=== PATIENT | female | born 1990 | race Caucasian/White ===

== ENCOUNTER 2017-02-22 16:58 | Emergency (ER) | payer OTHER ==
[2017-02-22 17:02] VITALS: BP 125/71; PULSE 80; TEMP 98.6; BMI 30.2
--- NOTE | 2017-02-22 18:45 | PDOC ---
History of Present Illness - General History Source: Patient Exam Limitations: No Limitations - History of Present Illness Initial Comments: 02/22/17 18:56 The patient is a 27 year old female (), states 5 weeks but by date 9 weeks (last menstrual period was on 12/20/16), who presents to the ED with complaints of vaginal bleeding since earlier today. The patient report a water pink vaginal discharge half an hour ago that has now turned brownish-colored discharge. The patient reports slight superpubic cramping associated with present symptoms. Denies dysuria. Denies fevers or chills. Denies abdominal pain, nausea, vomiting , or diarrhea. Denies chest pain or shortness of breath. Denies any other symptoms. Surgical: x3 (all born at 39 weeks) <Eric Fregoso - Last Filed: 02/22/17 22:21> - General History Source: Patient Exam Limitations: No Limitations <Rodrick Chaves - Last Filed: 02/22/17 22:25> - General Chief Complaint: Vaginal Bleeding Stated Complaint: VAGINAL BLEEDING/5 WKS Time Seen by Provider: 02/22/17 18:18 Past History <Eric Fregoso - Last Filed: 02/22/17 22:21> - Past Medical History Other medical history: PATIENT DENIES MEDICAL HISTORY - Psycho/Social/Smoking Cessation Hx Suicidal Ideation: No Smoking History: Never smoked Hx Alcohol Use: No Drug/Substance Use Hx: No <Rodrick Chaves - Last Filed: 02/22/17 22:25> - Past Medical History Allergies/Adverse Reactions: Allergies Allergy/AdvReac Type Severity Reaction Status Date / Time No Known Allergies Allergy Verified 02/22/17 17:02 Home Medications: Ambulatory Orders NK [No Known Home Medication] 02/22/17 Review of Systems - Review of Systems Able to Perform ROS?: Yes Comments:: 02/22/17 19:07 GENERAL/CONSTITUTIONAL: No fever or chills. No weakness. HEAD, EYES, EARS, NOSE AND THROAT: No change in vision. No ear pain or discharge. No sore throat. CARDIOVASCULAR: No chest pain or shortness of breath. RESPIRATORY: No cough, wheezing, or hemoptysis. GASTROINTESTINAL: No nausea, vomiting, diarrhea or constipation. GENITOURINARY: No dysuria, frequency, or change in urination. MUSCULOSKELETAL: No joint or muscle swelling or pain. No neck or back pain. PELVIC: + vaginal bleeding, superpubic pain SKIN: No rash NEUROLOGIC: No headache, vertigo, loss of consciousness, or change in strength/ sensation. ENDOCRINE: No increased thirst. No abnormal weight change. HEMATOLOGIC/LYMPHATIC: No anemia, easy bleeding, or history of blood clots. ALLERGIC/IMMUNOLOGIC: No hives or skin allergy. All Other Systems: Reviewed and Negative <Eric Fregoso - Last Filed: 02/22/17 22:21> *Physical Exam - Vital Signs Last Vital Signs Temp Pulse Resp BP Pulse Ox 98.6 F 80 18 125/71 100 02/22/17 16:59 02/22/17 16:59 02/22/17 16:59 02/22/17 16:59 02/22/17 16:59 - Physical Exam Comments: 02/22/17 19:07 GENERAL: Awake, alert, and fully oriented, in no acute distress HEAD: No signs of trauma EYES: PERRLA, EOMI, sclera anicteric, conjunctiva clear ENT: Auricles normal inspection, hearing grossly normal, nares patent, oropharynx clear without exudates. Moist mucosa NECK: Normal ROM, supple, no lymphadenopathy, JVD, or masses LUNGS: Breath sounds equal, clear to auscultation bilaterally. No wheezes, and no crackles HEART: Regular rate and rhythm, normal S1 and S2, no murmurs, rubs or gallops ABDOMEN: Soft, nontender, normoactive bowel sounds. No guarding, no rebound. No masses PELVIC: + Os is closed No cmt, old blood EXTREMITIES: Normal range of motion, no edema. No clubbing or cyanosis. No cords, erythema, or tenderness NEUROLOGICAL: Normal speech SKIN: Warm, Dry, normal turgor, no rashes or lesions noted. <Eric Fregoso - Last Filed: 02/22/17 22:21> - Vital Signs Last Vital Signs Temp Pulse Resp BP Pulse Ox 98.6 F 80 18 125/71 100 02/22/17 16:59 02/22/17 16:59 02/22/17 16:59 02/22/17 16:59 02/22/17 16:59 <Rodrick Chaves - Last Filed: 02/22/17 22:25> ED Treatment Course - LABORATORY CBC & Chemistry Diagram: 02/22/17 19:00 - RADIOLOGY Radiograph Interpretation: 02/22/17 22:00 US/TRANSVAGINAL US Impression: Findings suspicious for a nonviable intrauterine gestation and impending . Reported by: Darren Epperson <Eric Fregoso - Last Filed: 02/22/17 22:21> - LABORATORY CBC & Chemistry Diagram: 02/22/17 19:00 - RADIOLOGY Radiology Studies Ordered: Category Date Time Status TRANSVAGINAL US PREG [US] Stat Ultrasound 02/22/17 18:25 Ordered <Rodrick Chaves - Last Filed: 02/22/17 22:25> Medical Decision Making - Medical Decision Making 02/22/17 18:40 A portion of this note was documented by scribe services under my direction. I have reviewed the details of the note, within reason, and agree with the documentation with the following case summary and management plan written by me. Patient treated in the ED. Nursing notes are reviewed and incorporated into the medical decision-making. Vital signs reviewed. Peripheral IV access obtained by the nurse, laboratory studies are drawn and sent, reviewed and interpreted by myself. Vital Signs Temp Pulse Resp BP Pulse Ox 98.6 F 80 18 125/71 100 02/22/17 16:59 02/22/17 16:59 02/22/17 16:59 02/22/17 16:59 02/22/17 16:59 Ronan lanier and with no past medical history, , ~9 wks by dates (early December) (though pt reports she is 5 weeks ) presents with vaginal bleeding. Patient had noted some lower abdominal cramping and vaginal spotting. She denies abdominal pain now. Came to the ED for evaluation. Cervical os is closed and the bleeding is no longer occurring. Differential includes ectopic versus threatened miscarriage. We'll obtain labs including beta hCG and a type and screen and a transvaginal ultrasound and reassess. 02/22/17 22:23 Ultrasound reviewed. It is suspicious for a nonviable intrauterine gestation impending . There was a gestational sac of 6 weeks and 6 days. CBC, BMP 02/22/17 19:00 CMP Beta HCG, Quant 66373.2 mIU/ml 02/22/17 19:00 Urine Test Results Urine Color Ltyellow 02/22/17 19:00 Urine Appearance Clear 02/22/17 19:00 Urine pH 6.0 (5.0-8.0) 02/22/17 19:00 Ur Specific Cylinder 1.020 (1.005-1.025) 02/22/17 19:00 Urine Protein Negative (NEGATIVE) 02/22/17 19:00 Urine Glucose (UA) Negative (NEGATIVE) 02/22/17 19:00 Urine Ketones Negative (NEGATIVE) 02/22/17 19:00 Urine Blood Negative (NEGATIVE) 02/22/17 19:00 Urine Nitrite Negative (NEGATIVE) 02/22/17 19:00 Urine Bilirubin Negative (NEGATIVE) 02/22/17 19:00 Ur Leukocyte Esterase Negative (NEGATIVE) 02/22/17 19:00 O positive. This is likely impending . Patient given the results. I assured the patient that she has uncontrollable bleeding that she needs to return the ER for potential D&C. Patient was understanding agrees with plan. I discussed the physical exam findings, ancillary test results and final diagnoses with the patient. I answered all of the patient's questions. The patient was satisfied with the care received and felt comfortable with the discharge plan and treatment plan. The patient will call their primary care physician within 24 hours to arrange follow-up and will return to the Emergency Department with any new, persistant or worsening symptoms. <Rodrick Chaves - Last Filed: 02/22/17 22:25> *DC/Admit/Observation/Transfer - Attestations Scribe Attestion: 02/22/17 19:07 Documentation prepared by Eric Fregoso, acting as medical laboratory technical officer for Rodrick Chaves MD <Eric Fregoso - Last Filed: 02/22/17 22:21> - Discharge Dispostion Admit: No <Rodrick Chaves - Last Filed: 02/22/17 22:25> Diagnosis at time of Disposition: Vaginal bleeding before 22 weeks gestation - Discharge Dispostion Disposition: HOME Condition at time of disposition: Stable - Referrals Referrals: Benjamin Murillo MD [Staff Physician] - Ashlee Saldaña MD [Staff Physician] - - Patient Instructions Printed Discharge Instructions: DI for Miscarriage, Dealing With Miscarriage Additional Instructions: Please make an appointment with an forestry aid technician doctor this week. Take 650 mg tylenol every 4 hours as needed for pain. Your ultrasound appears that you are likely having a miscarriage. If you have uncontrollable bleeding, please return to the ER. Print Language: CHADIAN
[2017-02-22 19:28] LABS: BASOPHIL 0.2 % (0-2.0); EOSINOPHIL 0.2 % (0-4.5); MCH 29.7 pg (25.7-33.7); MCHC 33.6 g/dl (32.0-36.0); MEAN CELL VOLUME 88.3 fl (80-96); MEAN PLT VOLUME 8.3 fl (7.5-11.1); NEUTROPHILS 68.3 % (42.8-82.8); PLATELET COUNT 287 K/MM3 (134-434); RDW 13.8 % (11.6-15.6); WHITE BLOOD COUNT 9.3 K/mm3 (4.0-10.0)
[2017-02-22 19:31] LABS: URINE APPEARANCE CLEAR; URINE BILIRUBIN NEGATIVE (NEGATIVE); URINE BLOOD NEGATIVE (NEGATIVE); URINE COLOR LTYELLOW; URINE GLUCOSE (UA) NEGATIVE (NEGATIVE); URINE KETONE NEGATIVE (NEGATIVE); URINE LEUK ESTERASE NEGATIVE (NEGATIVE); URINE NITRITE NEGATIVE (NEGATIVE); URINE PROTEIN NEGATIVE (NEGATIVE); URINE UROBILINOGEN NEGATIVE E.U./dl (0.2-1.0)
== END 2017-02-22 22:31 | disposition home or self-care (01) ==
LOC: JER 16:58
DX: O20.8 Other hemorrhage in early pregnancy (principal); Z3A.01 Less than 8 weeks gestation of pregnancy
CPT/HCPCS: 36415; 76817-TC; 81003; 84702; 85025; 86850; 86900; 86901; 87086; 99283-25

== ENCOUNTER 2017-04-07 18:53 | Emergency (ER) | payer OTHER ==
[2017-04-07 18:58] VITALS: BP 110/70; PULSE 89; TEMP 98.8; BMI 28.5
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
[2017-04-07] MEDS ORDERED: ACETAMINOPHEN 325 MG TABLET (FP) PO ONE (21:00)
[2017-04-07] MEDS ORDERED: METHOCARBAMOL 500 MG TABLET PO ONE (21:01)
== END 2017-04-07 22:01 | disposition home or self-care (01) ==
LOC: JER 18:53
DX: Z04.1 Encounter for examination and observation following transport accident (principal); V53.6XXA Passenger in pick-up truck or van injured in collision with car, pick-up truck or van in traffic accident, initial encounter; Y92.414 Local residential or business street as the place of occurrence of the external cause; Y93.89 Activity, other specified
CPT/HCPCS: 99281-25

== ENCOUNTER 2017-04-20 12:15 | Emergency (ER) | payer OTHER ==
[2017-04-20 12:30] VITALS: BP 120/67; PULSE 80; TEMP 98.4; BMI 34.3
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
== END 2017-04-20 13:33 | disposition home or self-care (01) ==
LOC: JERFT 12:15
DX: S13.4XXA Sprain of ligaments of cervical spine, initial encounter (principal); V43.62XA Car passenger injured in collision with other type car in traffic accident, initial encounter; Y93.89 Activity, other specified; Y92.410 Unspecified street and highway as the place of occurrence of the external cause
CPT/HCPCS: 99281-25

== ENCOUNTER 2019-10-06 18:05 | Emergency (ER) | payer OTHER ==
[2019-10-06 18:29] VITALS: BP 152/89; PULSE 85; TEMP 98.5; BMI 32.9
--- NOTE | 2019-10-06 18:30 | PDOC ---
Rapid Medical Evaluation Chief Complaint: Headache Time Seen by Provider: 10/06/19 18:26 Medical Evaluation: Allergies Allergy/AdvReac Type Severity Reaction Status Date / Time lidocaine Allergy Rash Verified 10/06/19 18:26 10/06/19 18:26 I have performed a brief in-person evaluation of this patient. The patient presents with a chief complaint of: left eye twitching and malaise x 3weeks. pt also report tingling sensation on b/l feet. pt went to see PCP about symptoms 5 days ago and report blood work was done and waiting results which will take 2 weeks to come back. ptn report she couldnt wait due to feeling weakness and bodyaches. pt also report intermittent frontal MAKI Pertinent physical exam findings: afebrile I have ordered the following:cbc,cmp The patient will proceed to the ED for further evaluation. 10/06/19 18:29 Discharge Disposition - Diagnosis Malaise and fatigue Headache Qualifiers: Headache type: unspecified Headache chronicity pattern: acute headache Intractability: not intractable Qualified Code(s): R51 - Headache - Discharge Dispostion Condition at time of disposition: Stable - Referrals - Patient Instructions - Post Discharge Activity
[2019-10-06 18:49] LABS: BASO % 0.4 % (0-2.0); EOS % 0.2 % (0-4.5); HEMATOCRIT 41.1 % (32.4-45.2); HEMOGLOBIN 13.8 GM/dL (10.7-15.3); LYMPH % 35.1 % (8-40); MCH 30.3 pg (25.7-33.7); MCHC 33.6 g/dl (32.0-36.0); MEAN CELL VOLUME 90.3 fl (80-96); MEAN PLT VOLUME 7.5 fl (7.5-11.1); MONO % 7.3 % (3.8-10.2); PLATELET COUNT 364 K/MM3 (134-434); RBC 4.55 M/mm3 (3.60-5.2); RDW 13.9 % (11.6-15.6); WHITE BLOOD COUNT 10.6 K/mm3 (4.0-10.0)
[2019-10-06 19:25] LABS: ALBUMIN 4.2 g/dl (3.4-5.0); BILIRUBIN,TOTAL 0.2 mg/dL (0.2-1); BLOOD UREA NITROGEN 9.6 mg/dL (7-18); CALCIUM 9.3 mg/dL (8.5-10.1); CREATININE 0.8 mg/dL (0.55-1.3); POTASSIUM 4.4 mmol/L (3.5-5.1); TOT PROT 8.8 g/dl (6.4-8.2)
--- NOTE | 2019-10-06 20:45 | PDOC ---
History of Present Illness - General Chief Complaint: Headache Stated Complaint: HEADACHE/PAIN Time Seen by Provider: 10/06/19 18:26 History Source: Patient - History of Present Illness Initial Comments: 29-year-old female complaining of twitching to all over her body for the last 3 weeks. Patient reports that she was seen by her [place] marker primary care who ordered her lab. Results are pending. Patient reports that she is is concerned that symptoms are intermittent not completely resolved. Past History - Past Medical History Allergies/Adverse Reactions: Allergies Allergy/AdvReac Type Severity Reaction Status Date / Time lidocaine Allergy Rash Verified 10/06/19 18:26 Home Medications: Ambulatory Orders NK [No Known Home Medication] 10/06/19 - Reproductive History (#): 4 Para: 3 - Psycho Social/Smoking Cessation Hx Smoking History: Never smoked Have you smoked in the past 12 months: No Information on smoking cessation initiated: No Hx Alcohol Use: No Drug/Substance Use Hx: No Substance Use Type: None Review of Systems - Review of Systems Able to Perform ROS?: Yes Is the patient limited Greek proficient: No Neurological: Yes: Other (twitching) *Physical Exam - Vital Signs Last Vital Signs Temp Pulse Resp BP Pulse Ox 98.5 F 85 16 152/89 100 10/06/19 18:27 10/06/19 18:27 10/06/19 18:27 10/06/19 18:27 10/06/19 18:27 - Physical Exam General Appearance: Yes: Appropriately Dressed Respiratory/Chest: positive: Lungs Clear, Normal Breath Sounds Cardiovascular: positive: Regular Rhythm, Regular Rate Gastrointestinal/Abdominal: positive: Normal Bowel Sounds Extremity: positive: Normal Capillary Refill, Normal Inspection, Normal Range of Motion Integumentary: positive: Normal Color, Dry, Warm Neurologic: positive: cocktail server II-XII NML intact, Fully Oriented, Alert, Normal Mood/ Affect ED Treatment Course - LABORATORY CBC & Chemistry Diagram: 10/06/19 18:36 10/06/19 18:36 - ADDITIONAL ORDERS Additional order review: Laboratory Results 10/06/19 18:36 Sodium 137 Potassium 4.4 Chloride 107 Carbon Dioxide 24 Anion Gap 6 L BUN 9.6 Creatinine 0.8 Est GFR (CKD-EPI)AfAm 116.28 Est GFR (CKD-EPI)NonAf 100.33 Random Glucose 105 Calcium 9.3 Total Bilirubin 0.2 AST 16 ALT 30 Alkaline Phosphatase 104 Total Protein 8.8 H Albumin 4.2 10/06/19 18:36 RBC 4.55 MCV 90.3 MCHC 33.6 RDW 13.9 MPV 7.5 Neutrophils % 57.0 Lymphocytes % 35.1 D Monocytes % 7.3 Eosinophils % 0.2 Basophils % 0.4 ED Progress Note - Progress Note Progress Note: 10/07/19 05:39 A: muscle twitch P: advised to follow up with neurology Discharge - Discharge Information Problems reviewed: Yes Clinical Impression/Diagnosis: Muscle twitch Condition: Stable Disposition: HOME - Follow up/Referral Referrals: Luis Ramirez MD [Staff Physician] - Call tomorrow - Patient Discharge Instructions Patient Printed Discharge Instructions: DI for Muscle Spasm Additional Instructions: please follow up with neurology as soon as possible return to the ER for any worsening symptoms - Post Discharge Activity Work/Back to School Note: Back to Work
== END 2019-10-06 20:46 | disposition home or self-care (01) ==
LOC: JER 18:05 → JERFT 18:05
DX: R25.3 Fasciculation (principal); Z88.8 Allergy status to other drugs, medicaments and biological substances
CPT/HCPCS: 36415; 80053; 85025; 99281-25